=== PATIENT | male | born 1950 | race American Indian/Alaskan Native ===

== ENCOUNTER 2018-01-13 21:00 | Emergency (ER) | payer MEDICARE ==
[2018-01-13 21:09] VITALS: BP 142/95
--- NOTE | 2018-01-13 22:15 | Emergency Department Report ---
ED Back Pain/Injury HPI - General Chief Complaint: Back Pain/Injury Stated Complaint: RASH,BACK PAIN Time Seen by Provider: 01/13/18 22:04 Source: patient Limitations: No Limitations - History of Present Illness Initial Comments: Mr. Jarquin is a very pleasant 67-year-old male with lumbar degenerative disc disease. He requires a cane for ambulation. He has had the diagnosis for several years. He's had intermittent back pain. His primary physicians provided tramadol tablets in the past. Pain is moderately severe. No radiation. Worse with ambulation. Worse with flexing and extending the back. Denies any new weakness in the legs. Denies any bladder incontinence. He also desires strong ointment for dermatitis due to poison [place] or poison oak after doing yard work this week. He attempted [id number] solution obtained from the pharmacy without any relief. MD Complaint: back pain -: year(s) (several) Similar Symptoms Previously: Yes Radiation: none Severity: moderate Consistency: constant Improves With: none Worsens With: movement - Related Data Previous Rx's Medication Instructions Recorded Last Taken Type Triamcinolone 0.1% [Kenalog 0.1% 1 applic TP TID #2 tube 01/13/18 Unknown Rx CREAM] traMADol [Ultram 50 MG tab] 50 mg PO Q4HR PRN #30 tablet 01/13/18 Unknown Rx Allergies Allergy/AdvReac Type Severity Reaction Status Date / Time No Known Allergies Allergy Verified 01/13/18 21:03 ED Review of Systems ROS: Stated complaint: RASH,BACK PAIN Other details as noted in HPI Comment: All other systems reviewed and negative Respiratory: denies: cough Cardiovascular: denies: chest pain ED Past Medical Hx - Past Medical History Previous Medical History?: Yes Additional medical history: back - Surgical History Past Surgical History?: Yes - Social History Smoking Status: Never Smoker Substance Use Type: None - Medications Home Medications: Home Medications Medication Instructions Recorded Confirmed Last Taken Type Triamcinolone 0.1% [Kenalog 0.1% 1 applic TP TID #2 tube 01/13/18 Unknown Rx CREAM] traMADol [Ultram 50 MG tab] 50 mg PO Q4HR PRN #30 tablet 01/13/18 Unknown Rx ED Physical Exam - General Limitations: No Limitations General appearance: alert, in no apparent distress - Head Head exam: Present: atraumatic, normocephalic - Eye Eye exam: Present: normal appearance - ENT ENT exam: Present: mucous membranes moist - Neck Neck exam: Present: normal inspection. Absent: tenderness, meningismus - Respiratory Respiratory exam: Present: normal lung sounds bilaterally. Absent: respiratory distress, wheezes, rales, rhonchi - Cardiovascular Cardiovascular Exam: Present: regular rate, normal rhythm, normal heart sounds. Absent: systolic murmur, diastolic murmur, rubs, gallop - GI/Abdominal GI/Abdominal exam: Present: soft, normal bowel sounds. Absent: distended, tenderness, guarding, rebound - Rectal Rectal exam: Present: deferred - Extremities Exam Extremities exam: Present: normal inspection - Back Exam Back exam: Present: normal inspection - Neurological Exam Neurological exam: Present: alert, oriented X3, other (steady gait but requires cane) - Psychiatric Psychiatric exam: Present: normal affect, normal mood - Skin Skin exam: Present: warm, intact, other (erythematous papular rash both forearms ulnar aspect dorsal aspect). Absent: rash ED Course Vital Signs 01/13/18 21:07 Temperature 98.2 F Pulse Rate 67 Respiratory 16 Rate Blood Pressure 142/95 [Right] O2 Sat by Pulse 97 Oximetry ED Medical Decision Making - Medical Decision Making Mr. Jarquin presents with chronic back pain due to lumbar disc disease and is neurologically intact without signs of cauda equina or cord compression. I prescribed 30 tablets of tramadol. Patient also has contact dermatitis due to poison [place]/poison oak. I prescribed triamcinolone cream. Critical care attestation.: If time is entered above; I have spent that time in minutes in the direct care of this critically ill patient, excluding procedure time. ED Disposition Clinical Impression: Chronic back pain, Lumbar degenerative disc disease, Poison [place] dermatitis Is pt being admited?: No Does the pt Need Aspirin: No Condition: Stable Instructions: Back Pain (ED), Poison [place] (ED) Prescriptions: traMADol [Ultram 50 MG tab] 50 mg PO Q4HR PRN #30 tablet PRN Reason: Pain Triamcinolone 0.1% [Kenalog 0.1% CREAM] 1 applic TP TID #2 tube Referrals: JOCE MAST MD [Primary Care Provider] - 3-5 Days Time of Disposition: 22:16
== END 2018-01-13 22:24 | disposition home or self-care (01) ==
LOC: ED 21:00
DX: M51.36 Other intervertebral disc degeneration, lumbar region (principal); G89.29 Other chronic pain; L23.7 Allergic contact dermatitis due to plants, except food
CPT/HCPCS: 99282

== ENCOUNTER 2018-02-14 10:19 | Emergency (ER) | payer MEDICARE ==
[2018-02-14 10:41] VITALS: BP 124/75
[2018-02-14] MEDS ORDERED: MOTRIN PO ONE (12:11)
--- NOTE | 2018-02-14 12:11 | Emergency Department Report ---
ED Extremity Problem HPI - General Chief complaint: Extremity Problem,Nontraumatic Stated complaint: R KNEE PAIN Time Seen by Provider: 02/14/18 12:01 Source: patient Mode of arrival: Ambulatory Limitations: No Limitations - History of Present Illness Initial comments: Patient is a 67-year-old Stateless male who is presenting with right knee pain. Patient states that yesterday he fell 5 he was doing a lot of activity going up and down a step ladder doing a project. Patient states started late last night started having some right knee discomfort has continued this morning. Patient states there is some mild swelling. Patient denies any actual trauma to the knee. Patient states pain is a 6 out of 10 in severity. - Related Data Previous Rx's Medication Instructions Recorded Last Taken Type Triamcinolone 0.1% [Kenalog 0.1% 1 applic TP TID #2 tube 01/13/18 Unknown Rx CREAM] traMADol [Ultram 50 MG tab] 50 mg PO Q4HR PRN #30 tablet 01/13/18 Unknown Rx Ibuprofen [Motrin] 600 mg PO Q8H PRN #20 tablet 02/14/18 Unknown Rx traMADol [Ultram] 50 mg PO Q6HR PRN #10 tablet 02/14/18 Unknown Rx Allergies Allergy/AdvReac Type Severity Reaction Status Date / Time No Known Allergies Allergy Verified 01/13/18 21:03 ED Review of Systems ROS: Stated complaint: R KNEE PAIN Other details as noted in HPI Comment: All other systems reviewed and negative ED Past Medical Hx - Past Medical History Previous Medical History?: Yes Additional medical history: back - Social History Smoking Status: Never Smoker Substance Use Type: None - Medications Home Medications: Home Medications Medication Instructions Recorded Confirmed Last Taken Type Triamcinolone 0.1% [Kenalog 0.1% 1 applic TP TID #2 tube 01/13/18 Unknown Rx CREAM] traMADol [Ultram 50 MG tab] 50 mg PO Q4HR PRN #30 tablet 01/13/18 Unknown Rx Ibuprofen [Motrin] 600 mg PO Q8H PRN #20 tablet 02/14/18 Unknown Rx traMADol [Ultram] 50 mg PO Q6HR PRN #10 tablet 02/14/18 Unknown Rx ED Physical Exam - General Limitations: No Limitations General appearance: alert, in no apparent distress - Head Head exam: Present: atraumatic, normocephalic - Eye Eye exam: Present: normal appearance - ENT ENT exam: Present: mucous membranes moist - Neck Neck exam: Present: normal inspection - Respiratory Respiratory exam: Present: normal lung sounds bilaterally. Absent: respiratory distress - Cardiovascular Cardiovascular Exam: Present: regular rate, normal rhythm. Absent: systolic murmur, diastolic murmur, rubs, gallop - GI/Abdominal GI/Abdominal exam: Present: soft, normal bowel sounds - Rectal Rectal exam: Present: deferred - Extremities Exam Extremities exam: Present: normal inspection, full ROM, joint swelling (mild knee effusion) - Back Exam Back exam: Present: normal inspection - Neurological Exam Neurological exam: Present: alert, oriented X3 - Psychiatric Psychiatric exam: Present: normal affect, normal mood - Skin Skin exam: Present: warm, dry, intact, normal color. Absent: rash ED Course Vital Signs 02/14/18 10:37 Temperature 98.6 F Pulse Rate 69 Respiratory 16 Rate Blood Pressure 124/75 O2 Sat by Pulse 99 Oximetry ED Medical Decision Making - Medical Decision Making Patient be placed on Delfino wrap to use ice and pain medication will be given Critical care attestation.: If time is entered above; I have spent that time in minutes in the direct care of this critically ill patient, excluding procedure time. ED Disposition Clinical Impression: Knee effusion, right Disposition: DC-01 TO HOME OR SELFCARE Is pt being admited?: No Does the pt Need Aspirin: No Condition: Stable Instructions: Osteoarthritis (ED), Knee Effusion (ED), RICE Therapy (ED) Referrals: PRIMARY CARE,MD [Primary Care Provider] - 3-5 Days
== END 2018-02-14 12:16 | disposition home or self-care (01) ==
LOC: ED 10:19
DX: M25.461 Effusion, right knee (principal)
CPT/HCPCS: 99282

== ENCOUNTER 2018-03-11 13:51 | Emergency (ER) | payer MEDICARE ==
[2018-03-11 14:05] VITALS: BP 149/97
[2018-03-11] MEDS ORDERED: XYLOCAINE 2% INFILTRATI ONE (16:00)
--- NOTE | 2018-03-11 16:30 | Emergency Department Report ---
ED Back Pain/Injury HPI - General Chief Complaint: Back Pain/Injury Stated Complaint: NECK AND BACK PAIN FROM A FALL Time Seen by Provider: 03/11/18 15:59 Source: patient Limitations: No Limitations - History of Present Illness Initial Comments: Chronic back pain here month ago for Uma says he recently fell reinjured his back denies any bladder or bowel problems no numbness and weakness here for evaluation of low back pain after recent fall with history of same chronic low back pain no neck pain no head injury no abdcomplaints no other injuries or complaints Complaint: back pain, fall -: Gradual, days(s) Similar Symptoms Previously: Yes Radiation: none Severity: mild, moderate Quality: burning Consistency: intermittent Improves With: none Worsens With: none Context: fall Associated Symptoms: denies other symptoms. denies: confusion, weakness, chest pain, numbness, difficulty walking, cough, difficulty urinating, diaphoresis, incontinence, fever/chills, constipation, headaches, abdominal pain, loss of appetite, malaise, nausea/vomiting, rash, seizure, shortness of breath, syncope - Related Data Previous Rx's Medication Instructions Recorded Last Taken Type Triamcinolone 0.1% [Kenalog 0.1% 1 applic TP TID #2 tube 01/13/18 Unknown Rx CREAM] traMADol [Ultram 50 MG tab] 50 mg PO Q4HR PRN #30 tablet 01/13/18 Unknown Rx Ibuprofen [Motrin 600 MG tab] 600 mg PO Q8H PRN #20 tablet 03/11/18 Unknown Rx traMADol [Ultram 50 MG tab] 50 mg PO Q6HR PRN #10 tablet 03/11/18 Unknown Rx Allergies Allergy/AdvReac Type Severity Reaction Status Date / Time No Known Allergies Allergy Verified 01/13/18 21:03 ED Review of Systems ROS: Stated complaint: NECK AND BACK PAIN FROM A FALL Other details as noted in HPI Comment: All other systems reviewed and negative Constitutional: denies: diaphoresis, fever, malaise Eyes: denies: eye discharge, vision change ENT: denies: dental pain, hearing loss, epistaxis Respiratory: denies: shortness of breath, SOB with exertion, SOB at rest, stridor Cardiovascular: denies: chest pain, palpitations, dyspnea on exertion, orthopnea , edema, syncope Gastrointestinal: as per HPI. denies: abdominal pain, nausea, vomiting, diarrhea, constipation, hematemesis, melena, hematochezia Neurological: denies: headache, weakness, numbness, paresthesias, confusion, abnormal gait, vertigo ED Past Medical Hx - Past Medical History Additional medical history: back DJD - Surgical History Additional Surgical History: Removal of lipoma to right shoulder. Nerve decompression to left elbow - Social History Smoking Status: Never Smoker Substance Use Type: None - Medications Home Medications: Home Medications Medication Instructions Recorded Confirmed Last Taken Type Triamcinolone 0.1% [Kenalog 0.1% 1 applic TP TID #2 tube 01/13/18 Unknown Rx CREAM] traMADol [Ultram 50 MG tab] 50 mg PO Q4HR PRN #30 tablet 01/13/18 Unknown Rx Ibuprofen [Motrin 600 MG tab] 600 mg PO Q8H PRN #20 tablet 03/11/18 Unknown Rx traMADol [Ultram 50 MG tab] 50 mg PO Q6HR PRN #10 tablet 03/11/18 Unknown Rx ED Physical Exam - General Limitations: No Limitations General appearance: alert, in no apparent distress - Head Head exam: Present: atraumatic, normocephalic - Eye Eye exam: Present: normal appearance, PERRL, EOMI - ENT ENT exam: Present: normal exam, normal orophraynx - Neck Neck exam: Present: normal inspection. Absent: tenderness, meningismus - Respiratory Respiratory exam: Present: normal lung sounds bilaterally. Absent: respiratory distress, wheezes, rales, rhonchi, stridor - Cardiovascular Cardiovascular Exam: Present: regular rate, normal rhythm - GI/Abdominal GI/Abdominal exam: Present: soft. Absent: distended, tenderness, guarding, rebound, mass, pulsatile mass - Extremities Exam Extremities exam: Present: normal inspection, normal capillary refill. Absent: pedal edema, joint swelling, calf tenderness - Back Exam Back exam: Present: normal inspection, muscle spasm, paraspinal tenderness. Absent: CVA tenderness (R), vertebral tenderness, rash noted - Neurological Exam Neurological exam: Present: alert, oriented X3, CN II-XII intact. Absent: motor sensory deficit (nl reflexes downgoing toes) ED Course Vital Signs 03/11/18 14:02 Temperature 98.4 F Pulse Rate 72 Respiratory 16 Rate Blood Pressure 149/97 O2 Sat by Pulse 95 Oximetry ED Medical Decision Making - Radiology Data Radiology results: report reviewed - Medical Decision Making X-ray shows degenerative changes no acute process, patient has no findings of any type of spinal cord compressive syndrome, Maryjo JAIN aware was utilized given his frequent visits he has not had any narcotic prescriptions since early February this does appear to be legitimate fall with some acute exacerbation of chronic pain, we will put him on NSAIDs with several Ultram as needed for worse pain he is to return immediately if new or alarming symptoms otherwise see his regular doctor with referral to outpatient physical therapy Critical care attestation.: If time is entered above; I have spent that time in minutes in the direct care of this critically ill patient, excluding procedure time. ED Disposition Clinical Impression: Acute exacerbation of chronic low back pain Disposition: TO HOME OR SELFCARE Is pt being admited?: No Condition: Stable Instructions: Low Back Strain (ED), Back Pain (ED) Additional Instructions: Return immediately if new or alarming symptoms such as worse pain bladder or bowel problems see the doctor listed Prescriptions: Ibuprofen [Motrin 600 MG tab] 600 mg PO Q8H PRN #20 tablet PRN Reason: Pain traMADol [Ultram 50 MG tab] 50 mg PO Q6HR PRN #10 tablet PRN Reason: Pain Referrals: PRIMARY CAREMD [Primary Care Provider] - 3-5 Days EDOUARD MICHEL MD [Staff Physician] - 3-5 Days Time of Disposition: 18:57
--- NOTE | 2018-03-11 17:57 | XRay Report ---
FINAL REPORT PROCEDURE: XR SPINE LUMBOSACRAL 2-3V TECHNIQUE: Lumbosacral spine, three views HISTORY: fall/ low back pain COMPARISON: No prior studies are available for comparison. FINDINGS: There is no scoliosis. There are significant degenerative disc changes at all intervertebral body levels, with disc space narrowing, endplate sclerosis, osteophyte formation, and vacuum phenomenon. There is mild anterior vertebral body height loss of L1 and L2, which is favored to be chronic. IMPRESSION: Significant degenerative changes. No radiographic evidence of acute abnormality
== END 2018-03-11 19:03 | disposition home or self-care (01) ==
LOC: ED 13:51
DX: G89.29 Other chronic pain (principal); M54.5 Low back pain
CPT/HCPCS: 72100; 99283

== ENCOUNTER 2019-02-21 01:17 | Emergency (ER) | payer MEDICARE ==
--- NOTE | 2019-02-21 04:19 | Emergency Department Report ---
ED Rash HPI - HPI Chief Complaint: Skin Rash Stated Complaint: RASH Time Seen by Provider: 02/21/19 04:04 Duration: Today Location: Back, Abdomen Suspected Cause: Medication Rash Symptoms: Yes Itching, No Facial Swelling, No Tongue/Oral Swelling, No Breathing Difficulties, No Wheezing/Dyspnea, No Fever, No Malaise Severity: mild Other History: 8-year-old -[place] male to emergency department complaining of pruritic rash to his body of the coming contact with poison [place]. Tried [id number] creams with they have been unsuccessful in resolving the itching. Reports no wheezing or shortness of breath ED Review of Systems ROS: Stated complaint: RASH Other details as noted in HPI Constitutional: denies: chills, fever Eyes: denies: eye pain, eye discharge, vision change ENT: denies: ear pain, throat pain Respiratory: denies: cough, shortness of breath, wheezing Cardiovascular: denies: chest pain, palpitations Endocrine: no symptoms reported Gastrointestinal: denies: abdominal pain, nausea, diarrhea Genitourinary: denies: urgency, dysuria Musculoskeletal: denies: back pain, joint swelling, arthralgia Skin: denies: rash, lesions Neurological: denies: headache, weakness, paresthesias Psychiatric: denies: anxiety, depression Hematological/Lymphatic: denies: easy bleeding, easy bruising ED Past Medical Hx - Past Medical History Previous Medical History?: Yes Hx Diabetes: Yes Hx Arthritis: Yes Additional medical history: back DJD, - Surgical History Additional Surgical History: Removal of lipoma to right shoulder. Nerve decompression to left elbow - Social History Smoking Status: Never Smoker Substance Use Type: None - Medications Home Medications: Home Medications Medication Instructions Recorded Confirmed Last Taken Type Triamcinolone 0.1% [Kenalog 0.1% 1 applic TP TID #2 tube 01/13/18 Unknown Rx CREAM] traMADol [Ultram 50 MG tab] 50 mg PO Q4HR PRN #30 tablet 01/13/18 Unknown Rx Ibuprofen [Motrin 600 MG tab] 600 mg PO Q8H PRN #20 tablet 03/11/18 Unknown Rx traMADol [Ultram 50 MG tab] 50 mg PO Q6HR PRN #10 tablet 03/11/18 Unknown Rx Famotidine [Pepcid] 40 mg PO DAILY #14 tablet 02/21/19 Unknown Rx hydrOXYzine HCL [Atarax] 25 mg PO Q6HR PRN #20 tablet 02/21/19 Unknown Rx predniSONE [Deltasone] 50 mg PO QDAY #5 tab 02/21/19 Unknown Rx Rash Exam - Exam General: Vital signs noted. No distress. Alert and acting appropriately. HEENT: No Periorbital Edema, No Conjuctival Injection, No Chemosis, No Perioral Edema, No Tongue Edema, No Uvular Edema, No Compromised Airway, No Drooling Lungs: Yes Good Air Exchange (Normal Breath Sounds), No Wheezes, No Ronchi, No Stridor, No Cough, No Labored Respirations, No Retractions, No Use of Accessory Muscles, No Other Abnormal Lung Sounds Heart: Yes Regular, No Murmur Skin: Yes Other (hives scattered) Other: Positive: Abdomen Normal, Neurologic Normal, Musculoskeletal Normal ED Course Vital Signs 02/21/19 01:39 Temperature 98.6 F Pulse Rate 65 Respiratory 18 Rate Blood Pressure 130/75 O2 Sat by Pulse 96 Oximetry Critical care attestation.: If time is entered above; I have spent that time in minutes in the direct care of this critically ill patient, excluding procedure time. ED Disposition Clinical Impression: Hives Disposition: DC-01 TO HOME OR SELFCARE Is pt being admited?: No Does the pt Need Aspirin: No Condition: Stable Instructions: Urticaria (ED) Prescriptions: hydrOXYzine HCL [Atarax] 25 mg PO Q6HR PRN #20 tablet PRN Reason: Itching predniSONE [Deltasone] 50 mg PO QDAY #5 tab Famotidine [Pepcid] 40 mg PO DAILY #14 tablet Referrals: JOCE MAST MD [Primary Care Provider] - 3-5 Days
[2019-02-21 04:37] VITALS: BP 112/73
== END 2019-02-21 04:25 | disposition home or self-care (01) ==
LOC: ED 01:17
DX: L50.9 Urticaria, unspecified (principal); E11.9 Type 2 diabetes mellitus without complications; M19.90 Unspecified osteoarthritis, unspecified site
CPT/HCPCS: 99282